=== PATIENT | male | born 1945 | race Caucasian/White ===

== ENCOUNTER 2018-07-30 00:51 | Inpatient (IN) | payer MEDICARE, OTHER ==
[2018-07-30 01:18] LABS: #Basophils 0.1 thou/uL (0.0-0.2); #Eosinphils 0.3 thou/uL (0.0-0.7); #Lymphocytes 1.8 thou/uL (1.20-3.40); #Monocytes 1.2 thou/uL (0.11-0.59); %Basophils 0.6 % (0.0-1.0); %Eosinophils 3.3 % (0.0-10.0); %Lymphocytes 21.3 % (21.0-51.0); %Monocytes 14.7 % (0.0-10.0); %Neutrophils 60.1 % (42.0-75.0); Hemoglobin 15.5 g/dL (14.0-18.0); Mean Corpuscular HGB CONC 34.3 g/dL (32.0-36.0); Mean Corpuscular Hemoglobin 34.7 pg (27.0-31.0); Mean Platelet Volume 6.5 fL (7.4-10.4); Platelet Count 201 thou/uL (130-400); RBC Distribution Width 11.6 % (11.5-14.5); Red Blood Cell (RBC) Count 4.48 mill/uL (4.70-6.10); White Blood Cell (WBC) Count 8.4 thou/uL (4.8-10.8)
[2018-07-30 01:34] LABS: ALT (SGPT) 21 U/L (8-55); AST (SGOT) 21 U/L (5-34); Albumin 3.7 g/dL (3.4-4.8); Alkaline Phosphatase 50 U/L (40-150); Anion Gap 13 mmol/L (10-20); BUN (Urea Nitrogen) 16 mg/dL (8.4-25.7); Bilirubin, Total 0.5 mg/dL (0.2-1.2); Calc. Creatinine Clearance 0 mL/min (70-130); Carbon Dioxide 24 mmol/L (23-31); Chloride 103 mmol/L (98-107); Estimated GFR-MDRD 62; Globulin 2.9 g/dL (2.4-3.5); Glucose 134 mg/dL (83-110); Lipase 303 U/L (8-78); Potassium 3.9 mmol/L (3.5-5.1); Protein, Total 6.6 g/dL (5.8-8.1); Sodium 136 mmol/L (136-145)
[2018-07-30] MEDS ORDERED: Mag-Al 1200 mg/1200 mg/30 ML UDCUP ONE (01:36)
[2018-07-30] MEDS ORDERED: Lidocaine Viscous Sol 2% 15 ml UD Cup ONE (01:36)
[2018-07-30 01:53] LABS: Bilirubin Negative (Negative); Blood, Urine Negative (Negative); Clarity CLEAR (Clear); Glucose, Urine (Dipstick) Negative (Negative); Leukocyte Negative (Negative); Nitrite Negative (Negative); Protein, Urine (Dipstick) Negative (Neg-Trace); Urobilinogen 0.2 mg/dL (0.2-1.0); pH, Urine 5.5 (5.0-9.0)
[2018-07-30] MEDS ORDERED: Sodium Chloride 0.9% 1,000 ML IV SCH (04:24)
[2018-07-30] MEDS ORDERED: Ondansetron ODT 4 MG TAB SL PRN (04:24)
[2018-07-30] MEDS ORDERED: Ondansetron PF 4 MG/2 ML Vial IVP PRN ×2 (04:24→04:37)
[2018-07-30] MEDS ORDERED: Morphine 4 MG/ML VIAL SLOW IVP PRN (04:37)
[2018-07-30] MEDS ORDERED: Morphine 2 MG/ML SYRINGE SLOW IVP PRN (04:37)
[2018-07-30] MEDS ORDERED: Acetaminophen 325 MG TAB PO PRN (04:37)
[2018-07-30] MEDS: Sodium Chloride 0.9% 1,000 ML IV SCH ×3 (05:11→17:39)
--- NOTE | 2018-07-30 05:11 | HP ---
PRIMARY CARE PHYSICIAN: Dr. Schultz at the [facility]. CHIEF COMPLAINT: Abdominal pain. HISTORY OF PRESENT ILLNESS: Mr. Camp is a pleasant 72-year-old gentleman who has a history of hypertension. He also had an episode of transient global amnesia about 4 years ago. He was in his usual state of health until about 4 or 5 days ago when he began having diarrhea off and on. His says it was basically like a watery diarrhea, there was no blood there. He also had the onset of epigastric pain which was like a pressure and it was radiating to the back. It was fairly severe and he says that last night he could barely sleep as a result of the pain. When asked what may have precipitated it, he did say that he did go out to eat a few days back and had eaten at a salad bar, but did not think much of it and thought that he may have just got something a little bit bad off the salad bar, but it does not seem to be related to eating since then. He denies any fevers or chills other than a low-grade temperature. No hematemesis, no melena. He came to the ER for evaluation and a CT dissection protocol was done due to concerns for possible aortic aneurysm. This was negative, but his lipase was elevated at 310, and he is being admitted for pancreatitis. REVIEW OF SYSTEMS: CONSTITUTIONAL: He has had a low-grade fever, but no night sweats, no weight loss. HEENT: He denies any headaches, no dizziness, no visual changes, no sore throat, no rhinorrhea, no neck pain, no adenopathy. PULMONARY: No hemoptysis. No cough. No wheezing. CARDIOVASCULAR: He denies any chest pain. No shortness of breath. No PND. No orthopnea. GASTROINTESTINAL: As the history of present illness. GENITOURINARY: No urinary frequency or hematuria. No hesitancy. NEUROLOGIC: No focal weakness. No amnesia spells since the last event. No seizures. MUSCULOSKELETAL: No muscle pains, weakness, or joint pains. SKIN AND INTEGUMENT: No skin changes. No rash. ENDOCRINE: No heat or cold intolerance. No polyuria or polydipsia. PAST MEDICAL HISTORY: Significant for hypertension, transient global amnesia, and symptoms of vertigo. PAST SURGICAL HISTORY: He has had back surgery as well as an appendectomy. ALLERGIES: NO KNOWN DRUG ALLERGIES OTHER THAN STATINS, WHICH CAUSES MUSCLE SPASMS. SOCIAL HISTORY: He is . He is a nonsmoker and nondrinker. He would like to be a full code. His is his surrogate decision maker. FAMILY HISTORY: Significant for Alzheimer disease in his sister as well as brain tumor in his sister. CURRENT MEDICATIONS: Include; 1. Lisinopril 10 mg daily. 2. Amlodipine 5 mg daily. 3. Multivitamin once a day. PHYSICAL EXAMINATION: GENERAL: He is alert and oriented. He appears to be in no acute distress. VITAL SIGNS: Blood pressure was 134/72, heart rate 77, respiratory rate of 18, temperature is 98.7, and O2 saturation is 95% on room air. HEENT: Pupils are equal, round, and reactive. Extraocular muscles are intact. Sclerae are anicteric. Throat; no erythema, no exudates. NECK: No adenopathy. No bruits. LUNGS: Clear to auscultation. There is no wheezing, no rales, no rhonchi. CARDIOVASCULAR: He has normal S1 and S2. There is no S3 or S4. No murmurs, clicks, or rubs. ABDOMEN: Slightly distended. It is tympanic to percussion. He has some diffuse abdominal tenderness. There is no rebound, no guarding, no appreciable organomegaly. EXTREMITIES: There is no clubbing, cyanosis. No edema. NEUROLOGICAL: The exam is grossly nonfocal. Muscle strength was intact in both his upper and lower extremities. SKIN AND INTEGUMENT: There are no skin changes. No rashes. No skin lesions. LABORATORY RESULTS: Sodium is 136, potassium 3.9, chloride is 103, CO2 is 24, BUN of 16, creatinine 1.15, glucose is 134, lipase is 303. His bilirubin is 0.5, AST 21, ALT 21, alkaline phosphatase is 50. White blood cell count 8.4, hemoglobin 15.5, hematocrit is 45.3, and platelet count is 201. Urinalysis was essentially negative. He had a CT dissection protocol, which was negative. ASSESSMENT: 1. This is a pleasant 72-year-old gentleman who presents with diarrhea, followed by abdominal pain. He was found to have an elevated lipase. He has a mild pancreatitis, possibly viral in origin given the recent diarrhea or idiopathic. He denies drinking. We will get an abdominal ultrasound to rule out gallstones, but this is unlikely given the normal liver function tests. He will be placed on bowel rest and IV fluids as well as IV antiemetics and a proton pump inhibitor and hopefully this will resolve shortly. 2. Hypertension. We will allow him to take his blood pressure medications with sips of water and have a p.r.n. medication available. We will also place him on deep venous thrombosis prophylaxis. Job ID: [id number]
[2018-07-30 06:27] VITALS: BMI 28.0
--- NOTE | 2018-07-30 07:38 | CT ---
PRELIMINARY REPORT/[facility]/EMERGENCY AFTER HOURS PROCEDURE: EXAM: CT Angiography Chest With Contrast EXAM DATE/TIME: 07/30/2018 2:20 AM CLINICAL HISTORY: 72 years old, male; Other: Back pain; Epigastric; Patient HX: Er 6. 74m C/O abdominal pain worsening over the past 3 days, localized to epigastrium. Pain radiates to the back, also has bloatin g sensation and is frequently belching and passing fas. Reports h/o hiatal hernia. Reports several loos e stools 3 days ago, but normal bms yesterday and today. Denies any cp, palpitations, SOB. Reports both brothers had aaas. Surgical history of appendectomy TECHNIQUE: Imaging protocol: Axial computed tomographic angiography images of the chest with intravenous contrast using CT angiography protocol. Coronal and sagittal reformatted images were created and reviewed. 3D rendering: MIP reconstructed images were created and reviewed. COMPARISON: No relevant prior studies available. FINDINGS: Pulmonary arteries: Normal. No pulmonary emboli. Aorta: The aorta is normal. There is no evidence of aortic dissection, leak, rupture, or other complications. Lungs: There is subpleural atelectasis of the dependent portions of the lungs. Pleural space: Normal. No pneumothorax. No pleural effusion. Heart: Normal. No cardiomegaly. No pericardial effusion. Mediastinum: There is trace distal esophageal wall thickening. Lymph nodes: Unremarkable. No enlarged lymph nodes. Bones/joints: Unremarkable. No acute fracture. Soft tissues: Unremarkable. IMPRESSION: There is no evidence of aortic dissection, leak, rupture, or other complications. EXAM: CT Angiography Abdomen With Contrast EXAM DATE/TIME: 07/30/2018 2:20 AM CLINICAL HISTORY: 72 years old, male; Other: Back pain; Epigastric; Patient HX: Er 6. 72m C/O abdominal pain worsening over the past 3 days, localized to epigastrium. Pain radiates to the back, also has bloatin g sensation and is frequently belching and passing fas. Reports h/o hiatal hernia. Reports several loos e stools 3 days ago, but normal bms yesterday and today. Denies any cp, palpitations, SOB. Reports both brothers had aaas. Surgical history of appendectomy TECHNIQUE: Imaging protocol: Axial computed tomographic angiography images of the abdomen with intravenous contrast material. Coronal and sagittal reformatted images were created and reviewed. 3D rendering: MIP reconstructed images were created and reviewed. COMPARISON: No relevant prior studies available. FINDINGS: Lungs: Unremarkable. No consolidation. Mediastinum: A small hiatal hernia is present. There is trace distal esophageal wall thickening. VASCULATURE: Aorta: The aorta demonstrates mild atherosclerotic calcification. There is no evidence of aortic dissection, leak, rupture, or other complications. 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 SMA is patent. Renal arteries: There is mild atherosclerotic calcification at the origin of the bilateral renal deep rashad. ABDOMEN: Liver: There are no focal liver lesions identified. Gallbladder and bile ducts: The gallbladder is normal. There is no evidence of biliary ductal dilation. Pancreas: The pancreas appears normal. No ductal dilatation. Spleen: The spleen is normal. Adrenals: Normal. No mass. Kidneys and ureters: The kidneys appear normal. No hydronephrosis. Stomach and bowel: The stomach is normal. There is nonspecific dilatation of the small bowel up to 3.5 cm. Small bowel obstruction is possible however transition point is not included on provided images as pelvis is excluded from view. Intraperitoneal space: Unremarkable. No free air. No significant fluid collection. Bones/joints: Unremarkable. No acute fracture. No dislocation. Soft tissues: Unremarkable. Lymph nodes: Unremarkable. No enlarged lymph nodes. IMPRESSION: 1. There is no evidence of aortic dissection, leak, rupture, or other complications. 2. There is nonspecific dilatation of the small bowel up to 3.5 cm. Small bowel obstruction is possib le however transition point is not included on provided images as pelvis is excluded from view. Correlat e clinically. Thank you for allowing us to participate in the care of your patient. Dictated and Authenticated by: Rocael Ramírez MD 07/30/2018 2:49 AM Central Time ([place] & [place]) FINAL REPORT EMERGENCY AFTER HOURS CTA CHEST AND ABDOMEN WITH 3-D REFORMATTED IMAGING: IMPRESSION: I agree with the preliminary report provided. There is no acute aortic stenosis, occlusion, or dissec tion. 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 There is mild eccentric atherosclerotic disease involving the proximal SMA. There are mild vascular calcifications involving the origins of the renal arteries without hemodynamically significant stenosis. There are numerous dilated loops of small bowel within the central abdomen which are incompletely evaluated. Small bowel obstruction cannot be entirely excluded. Transcribed Date/Time: 07/30/2018 8:05 AM
--- NOTE | 2018-07-30 07:48 | ULT ---
ULTRASOUND ABDOMEN COMPLETE: DATE: 07/30/2018 HISTORY: 72-year-old male with abdominal pain and pancreatitis FINDINGS: Gallbladder: Normal wall thickness. No gallstones or sludge identified. No pericholecystic fluid. Liver: Normal parenchymal echogenicity. Bilateral kidneys: No hydronephrosis. Pancreas: Nonspecific sonographic appearance. Common duct caliber: 5 mm. Abdominal aorta: No aneurysm Inferior vena cava: Unremarkable where visualized. Spleen: No splenomegaly IMPRESSION: Normal.
[2018-07-30] MEDS: Enoxaparin Sodium 40 MG/0.4 ML SYRINGE SC SCH (08:12)
--- NOTE | 2018-07-30 10:36 | PDOC.PN ---
- Subjective Encounter Start Date: 07/30/18 Encounter Start Time: 10:34 Subjective: abdominal pain persists, no nausea - Objective Resuscitation Status - Order Detail: 07/30/18 04:23 Resuscitation Status Routine Resuscitation Status: FULL: Full Resuscitation MAR Reviewed: Yes Vital Signs & Weight: Vital Signs (12 hours) Temp Pulse Resp BP BP Pulse Ox 07/30/18 08:00 98 F 57 L 16 155/83 H 96 07/30/18 07:10 98 F 57 L 17 155/83 H 96 07/30/18 04:30 97.9 F 59 L 18 140/79 97 Weight Admit Weight 207 lb 0.013 oz Weight 207 lb Result Diagrams: 07/30/18 01:09 07/30/18 01:09 Phys Exam - Physical Examination Neck: no JVD Respiratory: clear to auscultation bilateral Cardiovascular: RRR, no significant murmur Gastrointestinal: positive bowel sounds generalized tenderness, worse RUQ, no peritoneal findings Musculoskeletal: no edema Dx/Plan (1) Pancreatitis, acute Code(s): K85.90 - ACUTE PANCREATITIS WITHOUT NECROSIS OR INFECTION, UNSP Status: Acute Qualifiers: Pancreatitis type: other Acute pancreatitis complication: no infection or necrosis Qualified Code(s): K85.80 - Other acute pancreatitis without necrosis or infection (2) HTN (hypertension) Code(s): I10 - ESSENTIAL (PRIMARY) HYPERTENSION Status: Acute Qualifiers: Hypertension type: essential hypertension Qualified Code(s): I10 - Essential (primary) hypertension - Plan NPO -: Morphine for Pain -: iv fluids -: rpt lipase in AM * .
[2018-07-30] MEDS ORDERED: Iopamidol 370 76% 100 ML VIAL ONE (11:01)
[2018-07-31] MEDS: Sodium Chloride 0.9% 1,000 ML IV SCH ×3 (00:50→13:53)
[2018-07-31 04:41] LABS: #Eosinphils 0.3 thou/uL (0.0-0.7); #Monocytes 0.7 thou/uL (0.11-0.59); #Neutrophils 2.5 thou/uL (1.40-6.50); %Basophils 0.1 % (0.0-1.0); %Eosinophils 5.3 % (0.0-10.0); %Lymphocytes 36.6 % (21.0-51.0); %Neutrophils 46.1 % (42.0-75.0); Hemoglobin 14.7 g/dL (14.0-18.0); Mean Corpuscular Hemoglobin 34.6 pg (27.0-31.0); Mean Platelet Volume 6.3 fL (7.4-10.4); Platelet Count 183 thou/uL (130-400); RBC Distribution Width 11.5 % (11.5-14.5); Red Blood Cell (RBC) Count 4.24 mill/uL (4.70-6.10); White Blood Cell (WBC) Count 5.4 thou/uL (4.8-10.8)
[2018-07-31 04:59] LABS: Anion Gap 10 mmol/L (10-20); BUN (Urea Nitrogen) 9 mg/dL (8.4-25.7); Calc. Creatinine Clearance 93 mL/min (70-130); Calcium 8.4 mg/dL (7.8-10.44); Carbon Dioxide 24 mmol/L (23-31); Chloride 108 mmol/L (98-107); Estimated GFR-MDRD 79; Glucose 87 mg/dL (83-110); Lipase 86 U/L (8-78); Potassium 4.1 mmol/L (3.5-5.1); Sodium 138 mmol/L (136-145)
[2018-07-31] MEDS: Enoxaparin Sodium 40 MG/0.4 ML SYRINGE SC SCH (08:46)
[2018-07-31 15:07] VITALS: BP 147/81; TEMP 98.7
--- NOTE | 2018-07-31 16:05 | DIS ---
DATE OF ADMISSION: 07/30/2018 DATE OF DISCHARGE: 07/31/2018 PRIMARY CARE PROVIDER: [facility] in [place]. FINAL DIAGNOSES: Acute pancreatitis, essential hypertension. DISCHARGE MEDICATIONS: 1. New, Pepcid 40 mg p.o. daily. 2. Lisinopril 10 mg at bedtime. 3. Amlodipine 5 mg a day. 4. Aspirin 81 mg a day. ALLERGIES: ADVERSE REACTIONS TO STATINS. DIET: Low fat until seen by [facility]. CODE STATUS: Full. PENDING AT TIME OF DISCHARGE: Nothing. CONSULTATIONS: None. PROCEDURES: None. HOSPITAL COURSE: The patient presented to [facility] with abdominal pain. His laboratory was unremarkable except for a lipase of 303. He had some diffuse tenderness. An abdominal ultrasound was done, which revealed normal hepatobiliary system. A CT dissection was done which was unremarkable. He was made n.p.o., given analgesics, IV fluids this morning, his abdomen was benign. His lipase had dropped down to near normal. He was hungry. He was fed a low-fat diet He had no pain. He is desirous of going home. He is being discharged for followup with the [facility] in 7 days. Job ID: [id number]
[2018-07-31] MEDS ORDERED: Lisinopril 10 MG TAB PO SCH (21:00)
[2018-07-31] MEDS ORDERED: Aspirin 81 mg Enteric Coated Tablet PO SCH (21:00)
[2018-08-01] MEDS ORDERED: Amlodipine 5 MG TAB PO SCH (09:00)
[2018-08-01] MEDS ORDERED: Multivit, Therapeutic 1 TAB PO SCH (09:00)
[2018-08-01] MEDS ORDERED: Fish Oil 1,000 MG CAP PO SCH (09:00)
== END 2018-07-31 16:59 | disposition home or self-care (01) | DRG 440 ==
LOC: ERS 00:51 → SURG A 04:34 → OBSVTOIN 10:32
PROVIDERS: ADMIT Internal Medicine; ATTEND Internal Medicine
DX: K85.90 Acute pancreatitis without necrosis or infection, unspecified (principal); I10 Essential (primary) hypertension; Z90.49 Acquired absence of other specified parts of digestive tract; Z88.8 Allergy status to other drugs, medicaments and biological substances; Z79.899 Other long term (current) drug therapy
CPT/HCPCS: 36415; 71275; 76700; 80048; 80053; 81003; 83690; 84478; 84484; 85025; 93005; 96360; 96361; J1650; Q9967

== ENCOUNTER 2024-02-26 10:00 | Outpatient (CLI) | payer OTHER ==
[2024-02-26 10:06] LABS: #Basophils 0.05 10x3/uL (0.0-0.2); %Basophils 0.9 % (0.0-1.0); %Eosinophils 5.1 % (0.0-10.0); %Lymphocytes 45.3 % (21.0-51.0); %Monocytes 9.3 % (0.0-10.0); %Neutrophils 39.2 % (42.0-75.0); Hemoglobin 16.6 g/dL (14.0-18.0); Mean Corpuscular HGB CONC 34.6 g/dL (32.0-36.0); Mean Corpuscular Hemoglobin 34.1 pg (27.0-31.0); Mean Corpuscular Volume 98.6 fL (78.0-98.0); Mean Platelet Volume 8.9 fL (7.4-10.4); Platelet Count 184 10x3/uL (130-400); RBC Distribution Width 13.1 % (11.5-14.5); Red Blood Cell (RBC) Count 4.87 mill/uL (4.70-6.10)
[2024-02-26 10:18] LABS: Prothrombin Time 13.2 sec (12.0-14.7)
[2024-02-26 10:33] LABS: Anion Gap 13 mmol/L (10-20); BUN (Urea Nitrogen) 20 mg/dL (8.4-25.7); Calc. Creatinine Clearance 0 mL/min (70-130); Carbon Dioxide 22 mmol/L (23-31); Chloride 109 mmol/L (98-107); Estimated GFR 57; Glucose 116 mg/dL (83-110); Sodium 139 mmol/L (136-145)
== END 2024-02-26 11:00 | disposition home or self-care (01) ==
LOC: LABBT 10:00
PROVIDERS: ATTEND Orthopaedic Surgery
DX: Z01.818 Encounter for other preprocedural examination (principal); S46.012A Strain of muscle(s) and tendon(s) of the rotator cuff of left shoulder, initial encounter
CPT/HCPCS: 80048; 85025; 85610; 85730; 87081; 93005; 93010

== ENCOUNTER 2024-02-29 05:01 | Observation (INO) | payer OTHER ==
[2024-02-26 09:05] VITALS: BMI 27.2
[2024-02-29] MEDS ORDERED: Ondansetron PF 4 MG/2 ML Vial ONE (06:08)
[2024-02-29] MEDS ORDERED: Rocuronium Bromide 10 MG/ML (10ML VIAL) ONE (06:08)
[2024-02-29] MEDS ORDERED: Fentanyl 250 MCG/5 ML VIAL ONE (06:08)
[2024-02-29] MEDS ORDERED: PROPOFOL 20 ML ONE (06:08)
[2024-02-29] MEDS ORDERED: SUGAMMADEX SODIUM 200 MG/2 ML VIAL ONE (06:08)
[2024-02-29] MEDS ORDERED: Dexamethasone 4 mg/ml Vial ONE (06:08)
[2024-02-29] MEDS ORDERED: Sodium Chloride 0.9% 100 ML ONE (06:19)
[2024-02-29] MEDS ORDERED: Tranexamic Acid 1,000 MG/10 ML VIAL ONE (06:19)
[2024-02-29] MEDS ORDERED: Vancomycin (BATCH) 300 ML ONE (06:19)
[2024-02-29] MEDS ORDERED: CEFAZOLIN 2 GM VIAL ONE (06:52)
[2024-02-29] MEDS ORDERED: traMADol HCl 50 MG TAB PO PRN ×3 (07:15→09:41)
[2024-02-29] MEDS ORDERED: HYDROcodone/Acetaminophen 10/325 mg Tablet PO PRN ×3 (07:15→09:41)
[2024-02-29] MEDS ORDERED: Ropivacaine 0.2% 550 ML 550 ML NERVE BLCK SCH (07:15)
[2024-02-29] MEDS ORDERED: fentaNYL 50 mcg/mL 1 mL Vial SLOW IVP PRN (07:15)
[2024-02-29] MEDS ORDERED: Sodium Chloride 0.9% 250 ML 250 ML ONE (07:15)
[2024-02-29] MEDS ORDERED: Ketorolac Tromethamine 30 MG (1 mL) VIAL IVP PRN (07:15)
[2024-02-29] MEDS ORDERED: Phenylephrine 10 MG/ML VIAL ONE (07:15)
[2024-02-29] MEDS ORDERED: Ropivacaine 0.5% HCl/PF (150 MG/30 ML VIAL) ONE (07:48)
[2024-02-29] MEDS ORDERED: Ropivacaine 0.2% HCl/PF 20 ML ONE (07:48)
[2024-02-29] MEDS ORDERED: Lidocaine 1% (PF) 30 ML VIAL ONE (07:48)
[2024-02-29] MEDS ORDERED: Glycopyrrolate 0.2 MG/ML 5 ML SYRINGE ONE (08:40)
[2024-02-29] MEDS ORDERED: Bisacodyl 10 MG SUPP PR PRN (09:41)
[2024-02-29] MEDS ORDERED: diphenhydrAMINE 50 MG CAP PO PRN (09:41)
[2024-02-29] MEDS ORDERED: Acetaminophen 325 MG TAB PO PRN (09:41)
[2024-02-29] MEDS ORDERED: Milk Of Magnesia 30 ML UDCUP PO PRN (09:41)
[2024-02-29] MEDS ORDERED: Methocarbamol 500 MG TAB PO PRN (09:41)
[2024-02-29] MEDS ORDERED: Ondansetron ODT 4 MG TAB PO PRN (09:41)
[2024-02-29] MEDS ORDERED: Zolpidem Tartrate 5 MG TAB PO PRN (09:41)
[2024-02-29] MEDS ORDERED: Ketorolac Tromethamine 30 MG (1 mL) VIAL IVP SCH (12:00)
[2024-02-29] MEDS: Sodium Chloride 0.9% 1,000 ML IV SCH (13:02)
[2024-02-29] MEDS: Ondansetron PF 4 MG/2 ML Vial IVP PRN (13:02)
[2024-02-29] MEDS: Famotidine 20 MG TAB PO SCH ×2 (13:02→22:01)
[2024-02-29] MEDS: CEFAZOLIN 2 GM in Sodium Chloride 0.9% 100 ML IVPB SCH (14:27)
[2024-03-01] MEDS: traMADol HCl 50 MG TAB PO PRN (01:51)
[2024-03-01 07:48] VITALS: BP 159/84; TEMP 98.2
[2024-03-01] MEDS: HYDROcodone/Acetaminophen 10/325 mg Tablet PO PRN (08:31)
== END 2024-03-01 11:39 | disposition home or self-care (01) ==
LOC: SDC 05:01 → SURG A 11:01
PROVIDERS: ADMIT Orthopaedic Surgery; ATTEND Orthopaedic Surgery
PROC: 0RRK00Z Replacement of Left Shoulder Joint with Reverse Ball and Socket Synthetic Substitute, Open Approach (ICD-10-PCS; principal; 2024-02-29)
PROC: 3E0T3BZ Introduction of Anesthetic Agent into Peripheral Nerves and Plexi, Percutaneous Approach (ICD-10-PCS; 2024-02-29)
DX: S46.012A Strain of muscle(s) and tendon(s) of the rotator cuff of left shoulder, initial encounter (principal); S46.212A Strain of muscle, fascia and tendon of other parts of biceps, left arm, initial encounter; I10 Essential (primary) hypertension; E78.5 Hyperlipidemia, unspecified; F01.50 Vascular dementia, unspecified severity, without behavioral disturbance, psychotic disturbance, mood disturbance, and anxiety; Z86.73 Personal history of transient ischemic attack (TIA), and cerebral infarction without residual deficits; Z79.82 Long term (current) use of aspirin; Z79.899 Other long term (current) drug therapy; X58.XXXA Exposure to other specified factors, initial encounter
CPT/HCPCS: A4306; C1713; C1776; J1100; J2371; J2405; J2704; J2795; J3010; J3370; J7030; J7050